=== PATIENT | female | born 1965 | race African-American/Black ===

== ENCOUNTER 2017-09-01 11:22 | Emergency (ER) | payer OTHER ==
[~2017-09-01] VITALS: Ht 165.1 cm; Wt 98.4 kg
[2017-09-01 11:25] VITALS: BP 138/87
--- NOTE | 2017-09-01 11:38 | NUR ---
PT JOSE L IN CHAIR A
--- NOTE | 2017-09-01 11:45 | NUR ---
C/O THROAT PAIN X 2 DAYS ---PAIN TO SWALLOW NASAL CONGESTION. RESP EVEN AND UNLABORED, ON RA@99%. DENIES ANY CHEST PAIN. SKIN W/D/I. HX---HTN RX---LOSARTAN
--- NOTE | 2017-09-01 11:58 | NUR ---
EVALUATING PT AT BEDSIDE
[2017-09-01 12:32] VITALS: BP 138/87
--- NOTE | 2017-09-01 12:32 | NUR ---
Patient discharged with v/s stable. Written and verbal after care instructions given and explained. Patient alert, oriented and verbalized understanding of instructions. Ambulatory with steady gait. All questions addressed prior to discharge. ID band removed. Patient advised to follow up with PMD. Rx of AMOXICILLIN, IBUPROFEN, PREDNISONE given. Patient educated on indication of medication including possible reaction and side effects. Opportunity to ask questions provided and answered.
== END 2017-09-01 12:32 | disposition home or self-care (01) ==
LOC: MED 11:22
DX: J02.8 Acute pharyngitis due to other specified organisms (principal); B96.89 Other specified bacterial agents as the cause of diseases classified elsewhere; B97.89 Other viral agents as the cause of diseases classified elsewhere; I10 Essential (primary) hypertension; Z90.710 Acquired absence of both cervix and uterus; Z88.8 Allergy status to other drugs, medicaments and biological substances
CPT/HCPCS: 99283